=== PATIENT | male | born 1965 ===

== ENCOUNTER 2024-06-07 17:16 | Emergency (ER) | payer BC ==
[2024-06-07] MEDS: Albuterol/Ipratropium 3.0-0.5 MG/3 ML Neb Soln NEB STA (17:44)
[2024-06-07] MEDS: Albuterol 0.083% 2.5 MG/3 ML Neb Soln NEB STA (17:44)
[2024-06-07 18:45] VITALS: BP 136/80; PULSE 86
== END 2024-06-07 18:43 | disposition home or self-care (01) ==
LOC: MW.ED 17:16
DX: R06.02 Shortness of breath (principal); Z75.8 Other problems related to medical facilities and other health care
CPT/HCPCS: 71046; 71046-26; 99283; 99285; J7620-GY